=== PATIENT | female | born 1995 | race Caucasian/White ===

== ENCOUNTER → 2020-02-04 10:00 | Outpatient (CLI) | payer OTHER, SELFPAY ==
--- NOTE | ~2020-02-04 | US_ITS ---
US soft tissue head and neck 02/04/2020 10:34 Indication: Cervical lymphadenopathy. Diffuse lymph node swelling. Procedure: High-resolution ultrasound of the neck Comparison: No prior studies for comparison. Findings: There is bilateral cervical lymphadenopathy. Largest lymph node in the right neck correspon ds to the area of palpable concern measuring 5.3 x 0.9 x 2.1 cm. Largest in the left neck, also corre sponds to area of palpable concern measuring 2.3 x 0.5 x 1.7 cm. Multiple additional enlarged lymph n odes are present. Impression: 1: Cervical lymphadenopathy, most likely reactive, although lymphoma and metastatic disease should be considered. Reviewed, dictated and finalized at location A. Impression: 1: Cervical lymphadenopathy, most likely reactive, although lymphoma and metast atic disease should be considered.
== END ==
PROVIDERS: PCP Student in an Organized Health Care Education/Training Program; Visit Provider Student in an Organized Health Care Education/Training Program
DX: R59.0 Localized enlarged lymph nodes (principal)
CPT/HCPCS: 76536

== ENCOUNTER → 2020-02-27 13:00 | Outpatient (CLI) | payer OTHER, SELFPAY ==
--- NOTE | ~2020-02-27 | CT_ITS ---
EXAMINATION: CT soft tissue neck wo/w con EXAM DATE: 02/27/2020 13:29 INDICATION: Enlarged neck lymph nodes, lymphadenopathy. Nausea and diarrhea. TECHNIQUE: Spiral CT of the neck was performed without and then with intravenous injection of 50 mL O mnipaque 350 (in addition to 100 mL previously administered for the abdomen pelvis CT). Axial, coron al and sagittal images were reviewed. The dose-length product (DLP) for this examination was 319.47 mGy-cm. The exposure was tailored according to patient size (auto mA exposure control), and iterativ e reconstruction (ASIR) was used as additional dose reduction technique. Correlation is made to ultra sound 02/04/2020. FINDINGS: The thyroid gland is unremarkable. The submandibular and parotid glands are symmetric. No sialolithiasis on the precontrast portion of exam. There are bilateral internal jugular chain lymph nodes, some of which are upper limits of normal in size for example on the left measuring 1.3 x 0.9 c m, and on the right measuring 1.4 x 0.8 cm. The superior mediastinum is unremarkable. The airway i s unremarkable. Parapharyngeal and pre-glottic fat planes are preserved. The opacified vasculatur e is patent. The orbits are unremarkable. Visualized sinuses and mastoid air cells are well aerat ed. Lung apices are clear. There is cervical spondylosis. IMPRESSION: Internal jugular chain lymph nodes upper limits of normal in size, most likely reactive. Clinical follow-up. If these enlarge further clinically then consider repeat CT or ultrasound. Reviewed, dictated and finalized at location B. IMPRESSION: Internal jugular chain lymph nodes upper limits of normal in size, most likely reactive. Clinical follow-up. If these enlarge further clinically t hen consider repeat CT or ultrasound.
--- NOTE | ~2020-02-27 | CT_ITS ---
EXAMINATION: CT abdomen pelvis w con EXAM DATE: 02/27/2020 13:28 INDICATION: Chronic right lower quadrant pain. Fever, diarrhea. TECHNIQUE: Spiral CT of the abdomen and pelvis was performed following intravenous injection of 100 m L Omnipaque 350. Axial, coronal and sagittal images were reviewed. The dose-length product (DLP) fo r this examination was 238.73 mGy-cm. The exposure was tailored according to patient size (auto mA e xposure control), and iterative reconstruction (ASIR) was used as additional dose reduction technique . There is no prior study for comparison. FINDINGS: The liver, spleen, adrenal glands and pancreas are unremarkable. Gallbladder is unremarkab le. No biliary obstruction. Portal and splenic veins are patent. Kidneys enhance symmetrically. T here is no hydronephrosis. The uterus is retroverted and morphologically normal. The bladder is u nremarkable. There is no retroperitoneal or pelvic lymphadenopathy. The appendix is normal. The stomach and small bowel are unremarkable. There is moderate amount of c olonic stool. No free intraperitoneal gas. The heart is normal in size. There are no pericardial or pleural effusions. The lung bases are unremarkable. There are no significant osseous abnormalit ies identified. IMPRESSION: 1. Moderate amount of colonic stool. Reviewed, dictated and finalized at location B.
== END ==
PROVIDERS: PCP Student in an Organized Health Care Education/Training Program; Visit Provider Student in an Organized Health Care Education/Training Program
DX: R10.31 Right lower quadrant pain (principal); G89.29 Other chronic pain; R59.1 Generalized enlarged lymph nodes
CPT/HCPCS: 70492; 74177; Q9967

== ENCOUNTER 2020-05-05 09:01 | Emergency (ER) | payer OTHER, SELFPAY ==
[2020-05-05 09:13] VITALS: BP 141/81; PULSE 91; RESP 18; TEMP 36.8; O2SAT 100
--- NOTE | 2020-05-05 09:27 | ED.EAR ---
HPI - Ear Problem General Chief complaint: Ear Stated complaint: Ear Pain Time Seen by Provider: 05/05/20 09:18 Source: patient and RN notes reviewed Mode of arrival: ambulatory Limitations: no limitations History of Present Illness HPI Narrative: Patient presents today with a 2-day history of right ear pain. At times she feels that she is underwater. At times she feels a shooting pain to her right methodist and right jaw. Pain increases with chewing. 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 Currently rates her pain 8/10 and has been using Advil and Tylenol without relief. Denies drainage or decreased hearing. Denies cough, congestion, rhinorrhea, sore throat. Reports history of otitis media in October and was placed on amoxicillin and clarithromycin and had followed up with ENT. Prior to that, she had been diagnosed with an otitis externa and had been placed on neomycin?polymyxin?hydrocortisone drops, which she had used a few times over the last couple of days without relief as well. 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 MD Complaint: ear pain Related Data Home Medications Medication Instructions Recorded Confirmed cyclobenzaprine 5 mg PO DAILY 05/05/20 05/05/20 norethindrone-e.estradiol-iron [Lo 1 tablet PO DAILY 05/05/20 05/05/20 Loestrin Fe] Allergies Allergy/AdvReac Type Severity Reaction Status Date / Time Cephalosporins Allergy Mild Rash Verified 05/05/20 09:18 Review of Systems Review of Systems: Narrative: CONSTITUTIONAL: Denies body aches, fever, chills, or sweats. EYES: Denies visual changes, redness, or discharge. ENT: Denies rhinorrhea, congestion, sore throat. + Right ear pain CARDIOVASCULAR: Denies chest pain, palpitations, or edema. RESPIRATORY: Denies cough or dyspnea. GASTROINTESTINAL: Denies abdominal pain, nausea, vomiting, or diarrhea. GENITOURINARY: Denies dysuria or hematuria. SKIN: Denies rash, itching, or wounds. MUSCULOSKELETAL: Denies back pain, joint pain, or myalgia. NEUROLOGIC: Denies headache, numbness, tingling, or weakness. PSYCH: Denies depression or anxiety. [facility] Past Medical History Medical History (Updated 05/05/20 @ 09:32 by Patience Alaniz, [facility], ) Bruxism Comments At time of signature, I have reviewed and agree with nursing past medical, surgical, social and family history unless otherwise noted. Please see nursing chart for further information. There is no relevant family history pertinent to the presenting complaint Exam Narrative: Exam Narrative: GENERAL: Well-appearing, well-nourished, and in no acute distress. HEAD: Normocephalic, atraumatic. EYES: EOMI. No redness or drainage. Conjunctivae normal. ENT: Mucous membranes pink and moist. Nares clear. No rhinorrhea. Left TM and canal normal. Right TM normal. Right ear with movement tenderness. No tragal tenderness. Right ear canal is erythematous with mild to moderate edema. No drainage. NECK: Normal AROM. Supple. No lymphadenopathy. CHEST: No respiratory distress. Clear to auscultation. HEART: Regular rate and rhythm. No murmur appreciated. Normal peripheral pulses. EXTREMITIES: Normal range of motion. No edema. SKIN: Warm, dry, no rash. Capillary refill normal. Normal skin turgor. NEURO: No focal deficits. Alert and oriented x3. Gait steady. PSYCH: Normal affect. No signs of depression or anxiety. Course Vital Signs Vital signs: Vital Signs Temperature 98.2 F 05/05/20 09:13 Pulse Rate 91 05/05/20 09:13 Respiratory Rate 18 05/05/20 09:13 Blood Pressure 141/81 H 05/05/20 09:13 Pulse Oximetry 100 05/05/20 09:13 Temperature 98.2 F 05/05/20 09:13 Pulse Rate 91 05/05/20 09:13 Respiratory Rate 18 05/05/20 09:13 Blood Pressure 141/81 H 05/05/20 09:13 Pulse Oximetry 100 05/05/20 09:13 Reviewed. Pt has been instructed to follow up with her PCP regarding her elevated
== END 2020-05-05 09:32 | disposition home or self-care (01) ==
PROVIDERS: Emergency Provider Nurse Practitioner; PCP Student in an Organized Health Care Education/Training Program
DX: H60.501 Unspecified acute noninfective otitis externa, right ear (principal)
CPT/HCPCS: 99203; G0463

== ENCOUNTER → 2020-05-07 11:44 | Outpatient (CLI) | payer OTHER, SELFPAY ==
--- NOTE | ~2020-05-07 | US_ITS ---
EXAMINATION: US soft tissue head and neck DATE: 05/07/2020 12:19 INDICATION: Cervical lymphadenopathy. TECHNIQUE: Multiple grayscale and Doppler ultrasound images of the abdomen were obtained. COMPARISON: Ultrasound 02/04/2020, neck CT 02/27/2020 FINDINGS: There are normal-sized lymph nodes in the neck bilaterally. IMPRESSION: 1. No abnormal lymphadenopathy. Reviewed, dictated and finalized at location A. OR PHP SOFTWARE DEVELOPER
== END ==
PROVIDERS: PCP Student in an Organized Health Care Education/Training Program; Visit Provider Student in an Organized Health Care Education/Training Program
DX: R59.1 Generalized enlarged lymph nodes (principal)
CPT/HCPCS: 76536

== ENCOUNTER → 2020-07-09 10:37 | Outpatient (CLI) | payer OTHER, SELFPAY ==
--- NOTE | ~2020-07-09 | XR_ITS ---
XR hand RT 2V DATE: 07/09/2020 11:09 INDICATION: Right hand pain TECHNIQUE: AP and lateral views COMPARISON: None FINDINGS: No fracture or dislocation, periosteal reaction or bone destruction, erosive change or niru drocalcinosis. Joint spaces are preserved. IMPRESSION: Negative Reviewed, dictated and finalized at location B. T SCIENTIST IMPRESSION: Negative
--- NOTE | ~2020-07-09 | XR_ITS ---
XR hand LT 2V DATE: 07/09/2020 11:09 INDICATION: Left hand pain TECHNIQUE: AP and lateral views COMPARISON: None FINDINGS: No fracture, dislocation, periosteal reaction or bone destruction, erosive change, chondroc alcinosis or joint space narrowing. IMPRESSION: Negative Reviewed, dictated and finalized at location B. SURE DISPATCHER IMPRESSION: Negative
--- NOTE | ~2020-07-09 | XR_ITS ---
XR wrist LT 2V DATE: 07/09/2020 11:09 INDICATION: Left wrist pain TECHNIQUE: AP and lateral views COMPARISON: None FINDINGS: No fracture or dislocation, periosteal reaction or bone destruction. Joint spaces are prese rved. No chondrocalcinosis or erosive change. IMPRESSION: Negative Reviewed, dictated and finalized at location B. IER DRIVER IMPRESSION: Negative
--- NOTE | ~2020-07-09 | XR_ITS ---
XR sacroiliac joints min 3V DATE: 07/09/2020 11:09 INDICATION: Sacroiliac pain TECHNIQUE: 6 views COMPARISON: None FINDINGS: No fracture or dislocation, erosive change or ankylosis of the sacroiliac joints. The pubic symphysis is intact. IMPRESSION: Negative sacroiliac joints Reviewed, dictated and finalized at Location A. Reviewed, dictated and finalized at location B. E LAB ANALYST IMPRESSION: Negative sacroiliac joints
== END ==
PROVIDERS: PCP Student in an Organized Health Care Education/Training Program; Visit Provider Physician Assistant Medical
DX: M25.50 Pain in unspecified joint (principal)
CPT/HCPCS: 72202; 73100; 73120

== ENCOUNTER 2021-02-20 09:23 | Emergency (ER) | payer OTHER, SELFPAY ==
[2021-02-20 09:38] VITALS: BP 113/65; PULSE 97; RESP 18; TEMP 36.8; O2SAT 98
--- NOTE | 2021-02-20 10:47 | ED.GENADULT ---
HPI - General Adult General Chief complaint: Nausea/Vomiting/Diarrhea Stated complaint: diarrhea/vomiting Source: patient Mode of arrival: ambulatory Limitations: no limitations History of Present Illness HPI narrative: Patient is a 21-year-old female who presents to the urgent care via POV for evaluation of nausea and vomiting that has been present for diarrhea that has been present for 4 days. Additionally, she reports cramping and bloating. She states her diarrhea is mucousy . She reports having 3-4 episodes of diarrhea per day since onset. She is taking a probiotic although has not seen an improvement in symptoms since starting this treatment. Nothing improves or worsen symptoms. Of note, patient reports she is a shot lighter and believes she may have Giardia. Related Data Home Medications Medication Instructions Recorded Confirmed cyclobenzaprine 5 mg PO DAILY 05/05/20 02/20/21 norethindrone-e.estradiol-iron [Lo 1 tablet PO DAILY 05/05/20 02/20/21 Loestrin Fe] Allergies Allergy/AdvReac Type Severity Reaction Status Date / Time Cephalosporins Allergy Mild Rash Verified 02/20/21 10:09 Review of Systems Review of Systems: Denies past abdominal medical history. Pertinent negatives fever, chills, sweats, malaise, poor p.o. intake, change in appetite, recent weight loss, lymphadenopathy, headache, sore throat, dizziness, LOC, urinary sxs, back/flank pain, extremity paresthesias, blood in stool, nausea, vomiting, constipation, belching, bloating, dry mouth, heartburn, jaundice, vomiting blood. PMFSH Past Medical History Medical History Bruxism Comments I have reviewed and agree with the patient's past medical, surgical, social, and family hx as documented by the RN. There is no relevant family history pertinent to the presenting complaint. Exam Narrative: GENERAL: Well-appearing, well-nourished, and in no acute distress. HEAD: Normocephalic, atraumatic. No sinus tenderness or facial swelling appreciated. EYES: PERRLA and EOMI. No evidence of erythema, swelling, or drainage. ENT: Mucous membranes moist and pink. Uvula is midline without erythema and swelling. No evidence of petechial rash, cobblestoning, lesions, ulcers, erythema, swelling, exudates, peritonsillar abscess, tenting, or drooling. Breath odor and voice normal. NECK: Supple. No Lymphadenopathy or nuchal rigidity appreciated. CHEST: Bilateral lung stanton are clear to auscultation. No respiratory distress. No evidence of cough or pleuritic cp upon examination. HEART: Regular rate and rhythm. No murmur, gallop, or rub heard. ABDOMEN: Soft, nondistended, mild tenderness and hyperactive active bowel sounds in all right lower and left lower quadrants. no guarding. No rebound tenderness. No pulsatile or palpable abdominal mass(es). No CVAT EXTREMITIES: Normal range of motion. No edema. SKIN: Warm, dry, no rash. Excellent skin turgor. NEURO: No focal deficits. Alert and oriented x3. SPECIAL OBSERVATIONS: Course Vital Signs Vital signs: Vital Signs Temperature 98.3 F 02/20/21 09:38 Pulse Rate 97 02/20/21 09:38 Respiratory Rate 18 02/20/21 09:38 Blood Pressure 113/65 02/20/21 09:38 Pulse Oximetry 98 02/20/21 09:38 Temperature 98.3 F 02/20/21 09:38 Pulse Rate 97 02/20/21 09:38 Respiratory Rate 18 02/20/21 09:38 Blood Pressure 113/65 02/20/21 09:38 Pulse Oximetry 98 02/20/21 09:38 Reviewed Medical Decision Making Differential Diagnosis Differential Diagnosis: Gastroenteritis, IBS, Crohn's disease, Giardia, ulcerative colitis Medical Records Medical records reviewed: Yes I reviewed the external patient's medical records. Vital Signs Vital Signs: Vital Signs Temperature 98.3 F 02/20/21 09:38 Pulse Rate 97 02/20/21 09:38 Respiratory Rate 18 02/20/21 09:38 Blood Pressure 113/65 02/20/21 09:38 Pulse Oximetry 98 02/20/21 09:38
== END 2021-02-20 11:08 | disposition home or self-care (01) ==
PROVIDERS: Emergency Provider Nurse Practitioner Family; PCP Student in an Organized Health Care Education/Training Program
DX: R19.7 Diarrhea, unspecified (principal)
CPT/HCPCS: 99213; G0463